=== PATIENT | female | born 1965 | race Native Hawaiian/Other Pacific Islander ===

== ENCOUNTER 2019-11-13 19:34 | Outpatient (CLI) | payer OTHER ==
[2019-11-13] MEDS ORDERED: GABA300C2 PO (20:44)
[2019-11-13] MEDS ORDERED: HYDROCHLOROT12.5 M1 PO (20:45)
[2019-11-13] MEDS ORDERED: RANI150T78 PO (20:45)
[2019-11-13] MEDS ORDERED: BENA20TA2 PO (20:46)
[2019-11-13] MEDS ORDERED: TRAMADOL HYDROC50 MG PO (20:46)
[2019-11-13] MEDS ORDERED: JANUMET1 TA1 PO (20:47)
[2019-11-13] MEDS ORDERED: GLIM4TAB PO (20:47)
[2019-11-13] MEDS ORDERED: CITALOPRAM40 MG PO (20:48)
[2019-11-13] MEDS ORDERED: PRAVACHOL20 MG PO (20:48)
[2019-11-13] MEDS ORDERED: MELOXICAM7.5 MG PO (20:48)
== END 2019-11-13 19:37 | disposition short-term general hospital (02) ==
LOC: AMB 19:34
DX: R41.82 Altered mental status, unspecified (principal); R53.83 Other fatigue; R11.2 Nausea with vomiting, unspecified
CPT/HCPCS: A0425; A0427

== ENCOUNTER 2019-11-13 19:54 | Emergency (ER) | payer OTHER ==
[~2019-11-13] VITALS: Ht 162.6 cm; Wt 136.1 kg
[2019-11-13 20:38] LABS: PLATELET COUNT 166 K/uL (152-353)
[2019-11-13] MEDS ORDERED: GABA300C2 PO (20:44)
[2019-11-13] MEDS ORDERED: RANI150T78 PO (20:45)
[2019-11-13] MEDS ORDERED: HYDROCHLOROT12.5 M1 PO (20:45)
[2019-11-13] MEDS ORDERED: TRAMADOL HYDROC50 MG PO (20:46)
[2019-11-13] MEDS ORDERED: BENA20TA2 PO (20:46)
[2019-11-13] MEDS ORDERED: JANUMET1 TA1 PO (20:47)
[2019-11-13] MEDS ORDERED: GLIM4TAB PO (20:47)
[2019-11-13] MEDS ORDERED: CITALOPRAM40 MG PO (20:48)
[2019-11-13] MEDS ORDERED: MELOXICAM7.5 MG PO (20:48)
[2019-11-13] MEDS ORDERED: PRAVACHOL20 MG PO (20:48)
[2019-11-13 20:57] LABS: POTASSIUM 3.5 mmol/L (3.6-5.2); SODIUM 136 mmol/L (136-145)
[2019-11-14 01:40] VITALS: BP 171/70; TEMP 99
== END 2019-11-14 02:12 | disposition short-term general hospital (02) ==
LOC: ED 19:54
PROVIDERS: Family Medicine
PROC: 0T9B70Z Drainage of Bladder with Drainage Device, Via Natural or Artificial Opening (ICD-10-PCS; principal; 2019-11-13)
DX: M72.6 Necrotizing fasciitis (principal); R11.2 Nausea with vomiting, unspecified; A41.9 Sepsis, unspecified organism; R10.84 Generalized abdominal pain; R41.0 Disorientation, unspecified; Z79.899 Other long term (current) drug therapy
CPT/HCPCS: 36415; 51702; 80053; 80307; 81000; 82150; 82271; 82550; 82553; 83605; 83690; 83986; 84484; 85027; 87040; 93005; 96361; 96365; 96374; 96375; 99285; J2405; J2543; J2550

== ENCOUNTER 2020-05-21 20:43 | Emergency (ER) | payer OTHER ==
[~2020-05-21] VITALS: Ht 162.6 cm; Wt 140.6 kg
[~2020-05-21 20:43] MED LIST: BENA20TA2 PO; CITALOPRAM40 MG PO; GABA300C2 PO; GLIM4TAB PO; HYDROCHLOROT12.5 M1 PO; JANUMET1 TA1 PO; MELOXICAM7.5 MG PO; PRAVACHOL20 MG PO; RANI150T78 PO; TRAMADOL HYDROC50 MG PO
[2020-05-21 21:25] LABS: PLATELET COUNT 152 K/uL (152-353)
[2020-05-21 21:31] LABS: POTASSIUM 4.2 mmol/L (3.6-5.2); SODIUM 139 mmol/L (136-145)
[2020-05-21 21:38] LABS: PARTIAL THROMBOPLASTIN TIME 23.6 SECONDS (24.5-33.6)
[2020-05-22 00:55] VITALS: BP 131/54; TEMP 98.3
== END 2020-05-22 00:56 | disposition short-term general hospital (02) ==
LOC: ED 20:43
PROVIDERS: General Practice
DX: R06.02 Shortness of breath (principal); E83.42 Hypomagnesemia
CPT/HCPCS: 36415; 80053; 82550; 82728; 83605; 83735; 83880; 84484; 85027; 85610; 85730; 86140; 87502; 93005; 96365; 99284; J3475

== ENCOUNTER 2021-06-06 14:26 | Inpatient (IN) | payer OTHER ==
[2021-06-06] VITALS (8 sets, daily range): BP systolic 119–167; BP diastolic 54–93; TEMP 97.5–97.9; Ht 160 cm; Wt 141.3 kg
[~2021-06-06] VITALS: Ht 160 cm; Wt 141.3 kg
[~2021-06-06 14:26] MED LIST changes: +ACID REDUCER150 MG PO; +ALBU90AE13 INH; +CIPRO XR500 MG PO; +CYCL10TA35 PO; +EC-NAPROSYN500 MG PO; +GLIM2TAB PO; +HYDR-3182 PO; +JANUMET1 TAB PO; +MELOXICAM7.5 MG OR; +METFTAB PO; +TRAM50TA PO
[2021-06-06 14:42] LABS: PLATELET COUNT 205 K/uL (152-353)
[2021-06-06 15:10] LABS: POTASSIUM 4.7 mmol/L (3.6-5.2); SODIUM 142 mmol/L (136-145)
[2021-06-06 15:15] LABS: PARTIAL THROMBOPLASTIN TIME 22.1 SECONDS (24.5-33.6)
--- NOTE | 2021-06-06 18:40 | NUR ---
PT'S FAMILY TO BRING HER HOME MEDICATIONS. PT'S PHARMACY [facility] IS CURRENTLY CLOSED.
--- NOTE | 2021-06-06 19:11 | NUR ---
LATE ENTRY 1800 PT ABLE TO WALK FROM WC TO BED NO WEAKNESS NOTED. PT ALSO NTOED TO HAVE HER CELLPHONE IN BED WITH HER AT TIME OF ADMSSION AND NO DEFICETS NOTED.
[2021-06-07 00:15] VITALS: BP 129/55; TEMP 98
[2021-06-07 04:18] VITALS: BP 118/52; TEMP 98.1
[2021-06-07 04:51] LABS: PLATELET COUNT 160 K/uL (152-353)
[2021-06-07 05:23] LABS: POTASSIUM 4.4 mmol/L (3.6-5.2)
[2021-06-07] MEDS ORDERED: GRALISE600 MG PO (05:44)
[2021-06-07] MEDS ORDERED: MELOXICAM7.5 MG PO (05:48)
[2021-06-07] MEDS ORDERED: GLIM4TAB PO ×2 (05:48→05:49)
[2021-06-07] MEDS ORDERED: FAMOTIDINE40 MG PO (05:49)
[2021-06-07] MEDS ORDERED: MAG OXIDE400 MG PO (05:50)
[2021-06-07] MEDS ORDERED: KAPSPARGO SPRI100 MG PO (05:50)
[2021-06-07] MEDS ORDERED: FURO20TA67 PO (05:51)
[2021-06-07] MEDS ORDERED: VITAMIN C500 M7 PO (05:51)
[2021-06-07] MEDS ORDERED: FLUTMIS6 INH (05:52)
[2021-06-07 07:00] VITALS: BP 128/56; TEMP 97.4
[2021-06-07 12:19] VITALS: BP 115/54; TEMP 97.5
[2021-06-07 16:00] VITALS: BP 109/49; TEMP 97.9
[2021-06-07 20:00] VITALS: BP 117/59; TEMP 97.8
[2021-06-08 00:20] VITALS: BP 139/69; TEMP 97.9
[2021-06-08 04:00] VITALS: BP 147/77; TEMP 97.8
[2021-06-08 08:00] VITALS: BP 141/62; TEMP 97.8
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
--- NOTE | 2021-06-08 11:02 | NUR ---
please disregard the last DCP/ Quality util mgmt note onthis patient, it was charted on the wrong patient. This was an error by this documentation writer.
[2021-06-08 12:00] VITALS: BP 126/57; TEMP 97.8
[2021-06-08 16:00] VITALS: BP 138/66; TEMP 98.2
[2021-06-08 20:00] VITALS: BP 149/82; TEMP 96.6
--- NOTE | 2021-06-08 20:04 | NUR ---
0940 . PT NOT VERBALLY RESPONSIVE EYES OPEN AND PUPILS REACT TO LIGHT. RESP EVEN AND NOT LABORED. PT MUSCLES ARE TIGHTENED AND SHE HEAD WAS TURNED TO THE RIGHT LOOKING UP TOWARDS THE CEILING. NOTIFIED AND NEW ORDERS GIVEN FOR ATIVAN. ORDERS CARRIED OUT AND PT RESPONDED AT 0953. 1045 DR CABALLERO AT DESK ASKING ABOUT EPISODE THAT WAS OBSERVED DR CABALLERO WAS INFORMED NEW ORDERS WRITTEN AND THEN HE WENT TO UNIT TO SPEAK WITH ATTENDING MD. 1801 PT OBSERVED IN THE SAME STATE [address] KELLY ORDERS. PT RESPONDED AT 1806. ATTENDING MD NOTIFED OF THIS SECOND EPISODE. 1909 PT URINATED ON THE BED. ALERT AND CONFUSED STATED SHE WAS LOOKING FOR HER CLOTHES. BED ALARM TURNED ON BECAUASE PT WAS ATTEMPTING TO GET OOB. WITHOUT ASSISTANCE AND WAS UNSURE OF WHERE SHE WAS GOING.
[2021-06-09] VITALS: BP 155/67; TEMP 97.9
[2021-06-09 04:00] VITALS: BP 153/86; TEMP 98.2
[2021-06-09 04:37] LABS: PLATELET COUNT 163 K/uL (152-353)
[2021-06-09 04:45] LABS: POTASSIUM 4.4 mmol/L (3.6-5.2)
[2021-06-09 05:02] LABS: PARTIAL THROMBOPLASTIN TIME 27.9 SECONDS (24.5-33.6)
--- NOTE | 2021-06-09 05:28 | NUR ---
AT THE BEGINNING OF SHIFT THE PATIENT WAS CONFUSED AND LETHARGIC. THE PATIENT WAS ORIENTED TO HER NAME AND THAT SHE "WAS IN A HOSPITAL" BUT DIDNT KNOW WHICH ONE. AT 2100 PATIENT WAS ORIENTED TO HERSELF THE PLACE AND THE PRESIDENT. PATIENT RESTED WELL ALL NIGHT AND ONLY REPORTED A BACK ACHE AT ONE TIME WHICH WAS TREATED WITH PRN MEDICATION. AT 0455 CUSHION SPRING ASSEMBLER WAS IN PATIENTS ROOM AND REPORTED TO THE NURSE THAT THE PATIENT APPEARED TO BE HAVING SEIZURE- LIKE ACTIVITY. CHARGE NURSE IN THE ROOM AT 0459. CORPORATE HUMAN RESOURCES MANAGER IN THE ROOM AT 0503. PATIENT WAS GIVEN 2MG OF ATIVAN AT 0503 AND AT 0508 PATIENT WAS GIVEN A 1MG OF ATIVAN. SHORTLY AFTER PATIENT WAS RESPONDING TO SIMPLE COMMANDS. PATIENT WAS ABLE TO SQUEEZE WRITERS HAND AND LOOK IN MY DIRECTION. PATIENT NOW RESTING QUIETLY AND ABLE TO FOLLOW SIMPLE COMMANDS
--- NOTE | 2021-06-09 06:15 | NUR ---
PATIENT IS LETHARGIC AND SLEEPY BUT IS ABLE TO DO SIMPLE COMMANDS AND KNOWS WHERE SHE IS
--- NOTE | 2021-06-09 07:03 | NUR ---
PATIENTS HAIR HAS BEEN WASHED IN PREP FOR HER EEG. PATIENT IS RESPONSIVE BUT DROWSY
[2021-06-09 08:00] VITALS: BP 153/92; TEMP 98.3
--- NOTE | 2021-06-09 10:20 | NUR ---
06/09/21 0918 AWAKE TALKING JUST CAME BACK FROM RESTROOM WITH ASSISTANCE.PT TOOK TO RESP FOR EEG VIA JAMES CHAIR.OXYGEN THERAPY 93 PERCENT ROOM AIR.CC
--- NOTE | 2021-06-09 10:57 | NUR ---
I HAVE SCHEDULED FU APPT FOR HER WITH SHIRLEY SCOTT, GOLD @ [facility] [phone] FOR NEXT 06/15/21 @ 11AM. I WILL FAX NOTES TO [phone].
--- NOTE | 2021-06-09 11:08 | NUR ---
06/09/21 10.30 BACK FROM EEG PER JAMES DOWNING.
--- NOTE | 2021-06-09 11:11 | NUR ---
06/09/21 1111 TALKING ON PHONE WITH FAMILY NAD NOTED.CC
[2021-06-09 12:00] VITALS: BP 164/76; TEMP 98.3
--- NOTE | 2021-06-09 13:02 | NUR ---
06/09/21 1300 BILATERAL CARTOID ULTRASOUND IN PROGRESS.
[2021-06-09 16:00] VITALS: BP 161/79; TEMP 98.4
[2021-06-09 20:00] VITALS: BP 140/61; TEMP 97.6
[2021-06-10 00:02] VITALS: BP 146/56; TEMP 98.2
[2021-06-10 04:00] VITALS: BP 144/70; TEMP 97.5
[2021-06-10 08:00] VITALS: BP 141/61; TEMP 98.3
[2021-06-10 12:00] VITALS: BP 148/65; TEMP 98.1
--- NOTE | 2021-06-10 13:25 | NUR ---
ESTELA,PCT STATES SHE CANNOT GET PT TO RESPOND, WRITE AND DR. REYES ENTERED RM, PT LYING ON RT SIDE IN HF FOLWERS, NO MOVEMENT NOTED, RT ARM UP BY FACE, WHEN WRITE ATTEMPTED TO PULL ARM DOWN PT RESISTED, PT DID NOT RESPOND TO VERBAL OR APPROPRIATE PAINFUL STIMULI, AFTER APROX. 3-4 MIN PATIENT INHALED DEEPLY AND EYES OPENED BUT DID NOT FOCUS ON MYSELF OR DR. REYES, PT THEN BECAME RESPONSIVE AND ASKED WHAT HAPPENED, DR. REYES REORIENTS PT AND INFORMS HER THAT THERE IS MEDICATION WE CAN GIVE HER WHEN SHE HAS A ONSET OF A SEIZURE, PT VERBALIZED UNDERSTANDING, PT ALERT AND ORIENTED NOW, SIDE RAILS UP X2, O2 SAT AT 99% ON 1L NC, NAD NOTED, NONLABORED BREATHING, INFORMED PT TO CALL BEFORE NEEDING TO GET UP, BED IN LOW POSITION, CALL LIGHT WITHIN REACH, NO FURTHER ORDERS GIVEN AT THIS TIME
[2021-06-10 16:06] VITALS: BP 139/58; TEMP 98.7
[2021-06-10 20:00] VITALS: BP 153/69; TEMP 97.8
[2021-06-11 00:11] VITALS: BP 138/60; TEMP 97.7
[2021-06-11 04:00] VITALS: BP 112/64; TEMP 97.5
--- NOTE | 2021-06-11 04:58 | NUR ---
Pt's call light came on earlier tonight and this telegraphic typewriter operator walked into pt's room to check on pt. Spoke to pt but pt appeared to be resting with eyes closed. Once this telegraphic typewriter operator got back to nurse's station pt's light came on again. This telegraphic typewriter operator again walked to pt's room to see what pt wanted. Pt was moaning out and when asked her what was wrong she did not repond to questions. Another nurse Michelle Corea LPN entered room and she was on one side of the bed while I was on the other side of the bed. Ms. Corea and myself observe pt grab ahold of the bed rail and begain shaking it and continued to moan out. Pt did not acknowlege either nurse in the room. We step outside her door and waited and monitored her. After about a minute she stopped shaking the bedrail. She called about 15 minutes after episode and asked for something for headache. Tylenol was pulled from [facility]. By the time this telegraphic typewriter operator returned to pt's room with the Tylenol, pt was observed with snoring repirations and did not respond when her name was called. Pt has been resting with eyes closed since the episode ended about 0145. No s/s of distress observed at this time. Call light in easy reach. VS stable at 97.5 P58 R18 BP112/64 O2 95% at room air.
[2021-06-11 08:00] VITALS: BP 147/70; TEMP 97.2
--- NOTE | 2021-06-11 10:36 | NUR ---
CALLED INTO PTS ROOM BY CHELSY@0045. PT HAVING A SEIZURE WITH NO MOVEMENT. PUPILS 3MM,NOT DILATED OR CONSTRICTED AND REACTIVE. NAD NOTED. LIGHT STERNUM RUB TO CHEST AND PT OPENED HER EYES. AFER ABOUT 5 MINUTES PT ABLE TO GIVE VERBAL FEEDBACK. 30 MINUTES LATER HAD A LOGICAL AND NORMAL CONVERSATION, PT RECOGNIZED THIS NURSE. PT PULLED HERSELF UP IN THE BED USING THE SIDERAILS AND BEGAN TO EAT BREAKFAST.
[2021-06-11 12:00] VITALS: BP 117/69; TEMP 97.6
[2021-06-11 16:00] VITALS: BP 121/56; TEMP 98.1
[2021-06-11 20:00] VITALS: BP 135/59; TEMP 98.1
[2021-06-12] VITALS: BP 134/62; BP 152/77; TEMP 97.5; TEMP 97.9
[2021-06-12 04:00] VITALS: BP 135/69; TEMP 97.6
--- NOTE | 2021-06-12 04:39 | NUR ---
Pt has rested through the night with eyes closed. No seizure activity observed. PRN pain med given at hs per pt's request for "really bad headache". No further c/o pain/discomfort voiced. No s/s of distress voiced. Call light in easy reach.
[2021-06-12 05:11] LABS: PLATELET COUNT 158 K/uL (152-353)
[2021-06-12 08:00] VITALS: BP 113/59; TEMP 97.9
--- NOTE | 2021-06-12 08:25 | NUR ---
OT AT BEDSIDE. OT NOTIFIED NURSE THAT PATIENT WAS STRING OFF INTO SPACE AND WOULDNT ANSWER. STERNAL RUB PERFORMED ON PATIENT. PATIENT WOULD NOT AROUSE. LIYAH NOTED. 2 MG OF PRN ATIVAN GIVEN FOR SEIZURE LIKE ACTIVITY AT 0830. PATIENT AROUND AT 0833. PATIENT SLOW TO REACT. PATIENT ORIENTED TO SELF AND PLACE.
[2021-06-12 12:00] VITALS: BP 129/56; TEMP 98
--- NOTE | 2021-06-12 15:15 | NUR ---
DR. SCHUSTER CONSULT REQUESTED WITH ANNE MARIE BISHOP, EXTENSION COURSE COUNSELOR. LANDEN NOTIFIED OF CONTINUED SEIZURE LIKE ACTIVITY.
--- NOTE | 2021-06-12 15:45 | NUR ---
PCT IN TO CHECK VITALS FOLLOWING SHOWER FROM OT. TECH NOTIFIED NURSE THAT PATIENT WAS STARING OFF INTO SPACE. STERNUM RUB PERFORMED WITH NO CHANGE. LIYAH NOTED. PATIENT GIVEN 2 MG OF PRN ATIVAN PER MD ORDERS. NO CHANGE AFTER 5 MINS. STERNUM RUB PERFORMED SEVERAL TIMES WITH NO CHANGE. PATIENT GIVEN 1 MG OF PRN ATIVAN. NO CHANGE AFTER 5 MIN. STERNUM RUB PERFORMED. NO CHANGE. DR. LARSON NOTIFIED. DR. LARSON CAME TO BEDSIDE. NURSE SECURITY PROFESSIONAL ALSO TO BEDSIDE. PATIENT AROUSED AFTER STERNUM RUB BY NURSE SECURITY PROFESSIONAL. PATIENT ORIENTED TO SELF AND PLACE. PATIENT DROWSY. PATIENT SLEEPING AT THIS TIME.
[2021-06-12 16:00] VITALS: BP 146/63; TEMP 97.8
[2021-06-12 20:00] VITALS: BP 146/68; TEMP 97.2
--- NOTE | 2021-06-12 22:30 | NUR ---
PM MEDS GIVEN AT THIS TIME. PT. TOLERATED WELL. PT. STATES "WHICH MEDICINE IS MY SEIZURE MEDICATION". CORN SHELLER EXPLAINED KEPRRA AND GABAPENTIN COULD AID IN FURTHER SEIZURE ACTIVITY. PT. IS RESPONSIVE TO VERBAL STIMULI WHILE SITTING UP IN A HIGH-FOWLERS POSITION WITH SIDE RAILS UP TIMES TWO WITH BED IN LOWEST POSIION WITH CALL LIGHT WITHIN REACH. NASAL CANNULA @ 2L REPOSTIONED BACK INTO NARES. NO ACUTE NEEDS OR CHANGES ON PT AT THIS TIME.
--- NOTE | 2021-06-12 22:50 | NUR ---
PT'S HEART RATE WAS 165 AT THIS TIME. DIMENSION MILL WORKER WENT INTO ROOM AND PT STATES "I FEEL LIKE I'M GOING TO HAVE ANOTHER SEIZURE" DIMENSION MILL WORKER STAYED IN ROOM IN PT/ PT'S HEART RATE CAME DOWN TO THE 70'S.
[2021-06-13] VITALS: BP 152/77; TEMP 97.5
[2021-06-13 04:00] VITALS: BP 113/59; TEMP 97.4
--- NOTE | 2021-06-13 05:55 | NUR ---
NORCO 5/325 GIVEN FOR HEADACHE AT THIS TIME. WILL REASSESS.
[2021-06-13 08:00] VITALS: BP 153/71; TEMP 97.3
--- NOTE | 2021-06-13 09:00 | NUR ---
PATIENT SITTING IN CHAIR. IN TO GIVE PATIENT MEDICATIONS. PATIENT WOULD NOT AROUSE. LIYAH NOTED. PATIENT NAME CALLED SEVERAL TIMES. DR. LARSON AT NURSES STATION NOTIFIED. SHE ENTERED THE ROOM AND ASSESSED THE PATIENT. STERNUM RUB PERFORMED. PATIENT DID NOT AROUND. DR. LARSON STATED THAT IT WASNT SEIZURE LIKE ACTIVITY. PATIENT MONITORED FURTHER. TELEMETRY SHOWED NO EXTRA ACTIVITY.
--- NOTE | 2021-06-13 11:00 | NUR ---
PATIENT BACK IN BED. CALL LIGHT WAS PRESSED. AUDIO DIRECTOR ENTERED ROOM. PATIENT APPEARED ASLEEP. PATIENT GRIPPING SIDE RAIL. PATIENT NAME CALLED SEVERAL TIMES. PATIENT DID NOT AROUSE. STERNUM RUB PERFORMED. PATIENT DID NOT AROUSE. DR. LARSON NOTIFIED AND SHE STATED THAT IT WASNT SEIZURE LIKE ACTIVITY. PATIENT RESTING. NAD NOTED. PATIENT MONITORED FURTHER.
[2021-06-13 12:00] VITALS: BP 140/63; TEMP 97.6
--- NOTE | 2021-06-13 12:30 | NUR ---
ENTERED PATIENT ROOM TO CHECK ON PATIENT. SHE APPEARED TO BE RESTING. PATIENT NAME CALLED AND PATIENT DID NOT RESPOND. STERNUM RUB PERFORMED AND PATIENT DID NOT RESPOND. PRESS TENDER LONG GOODS WALKED TO DOOR AND NOTIFIED PCT FOR ASSISTANCE MOVING PATIENT. PRESS TENDER LONG GOODS CLOSED DOOR. PATIENT LOOKED AT PRESS TENDER LONG GOODS AND THEN JERKED HEAD TO OPPOSITE SIDE AND WOULD NOT RESPOND.
--- NOTE | 2021-06-13 13:00 | NUR ---
PCT NOTIFIED KINDERGARTEN INSTRUCTIONAL ASSISTANT THAT PATIENT WAS ANGRY AND REQUESTING PEN AND PAPER. SHE WANTED THE NAMES OF THE PCT AND NURSES SO SHE COULD REPORT THEM. CHARGE NURSE ENTERED ROOM TO DISCUSS WITH PATIENT. PATIENT WAS SCARED AND CONCERNED WITH HER HEALTH. SHE WANTED TO SPEAK WITH THE DOCTOR ABOUT WHAT WAS GOING TO HAPPEN. DOCTOR NOTIFIED.
[2021-06-13 16:00] VITALS: BP 148/74; TEMP 97.9
--- NOTE | 2021-06-13 16:00 | NUR ---
PATIENT RESTING. NAD NOTED. PATIENT VERBALIZED TO PCT ,"IM GONNA GET YOU. I KNOW YOUR NAME. I AM GONNA REPORT YOU AND GET YOU FIRED." PT AND OT AT BEDSIDE. PATIENT BEHAVIOR DISCUSSED WITH MD AND UR.
[2021-06-13 20:00] VITALS: BP 115/66; TEMP 97.8
[2021-06-14] VITALS: BP 136/72; TEMP 97.3
[2021-06-14 04:00] VITALS: BP 124/58; TEMP 97.4
[2021-06-14 08:00] VITALS: BP 124/59; TEMP 97.3
--- NOTE | 2021-06-14 10:49 | NUR ---
i went to patients room today to fu on discharge plan needs but she was sleeping. i asked her nurse, Belle, to let me know when she is awake so i can fu with her.
[2021-06-14 12:00] VITALS: BP 150/72; TEMP 98.1
[2021-06-14] MEDS ORDERED: ENTERIC COATED325 MG PO (14:50)
[2021-06-14] MEDS ORDERED: ATOR20TA2 PO (14:50)
[2021-06-14] MEDS ORDERED: LEVE500T5 PO (14:51)
--- NOTE | 2021-06-14 16:00 | NUR ---
PT DC INSTRUCTIONS GIVEN AND EXPLAIN, PT VERBALIZED UNDERSTANDING, IV REMOVED WITH CATHETER INTACT, FOLLOWUP APPOINTMENTS MADE, MEDICATIONS FILLED FROM PHARMACY AND GIVEN TO PT, PT DC VIA WHEELCHAIR TO PERSONAL VEHICLE, NAD NOTED
== END 2021-06-14 18:05 | disposition home or self-care (01) | DRG 100 ==
LOC: ED 14:30 → MED/SURG 15:40 → UNDODEPER 06-07 17:28 → MED/SURG 06-09 14:45
PROVIDERS: Hospitalist; Internal Medicine; ADMIT Internal Medicine Endocrinology, Diabetes & Metabolism; ATTEND Internal Medicine Endocrinology, Diabetes & Metabolism
DX: G40.89 Other seizures (principal); I63.81 Other cerebral infarction due to occlusion or stenosis of small artery; J96.11 Chronic respiratory failure with hypoxia; K21.9 Gastro-esophageal reflux disease without esophagitis; I25.10 Atherosclerotic heart disease of native coronary artery without angina pectoris; G47.09 Other insomnia; M15.8 Other polyosteoarthritis; I10 Essential (primary) hypertension; Z99.81 Dependence on supplemental oxygen; Z86.16 Personal history of COVID-19; R53.1 Weakness; R62.7 Adult failure to thrive; R26.89 Other abnormalities of gait and mobility; E11.42 Type 2 diabetes mellitus with diabetic polyneuropathy
CPT/HCPCS: 36415; 80048; 80053; 80061; 80307; 80320; 81000; 82550; 82948; 83880; 84443; 84484; 85027; 85610; 85730; 87635; 93005; 94760; 96372; 96374; 99220; 99284; A9576; G0378; J1650; J1815; J2060; J2270; U0003